=== PATIENT | female | born 1935 | race Caucasian/White ===

== ENCOUNTER → 2016-09-24 | Outpatient (CLI) | payer MEDICARE, OTHER ==
[~2016-09-24] VITALS: Ht 161.3 cm; Wt 59.1 kg
[~2016-09-24] MED LIST: ASPI-557 PO; CALC-52 PO; CHOL200029 PO; DENOSUMAB 60 MG/ML INJECTION SQ ONE; LISI-1 PO; LORA0.5T86 PO; MULT-57 PO; SIMV10TA6 PO; VITA400C19 PO; [UNRECOGNIZED DRUG - CODE] PO; [UNRECOGNIZED DRUG - CODE] PO
[2016-09-24 10:31] VITALS: BP 139/69; PULSE 69; RESP 18; TEMP 97.4; O2SAT 98
[2016-09-24 10:32] VITALS: Ht 161.3 cm; Wt 59.1 kg
== END ==
LOC: INF.THER 09:55
PROVIDERS: ATTEND Family Medicine
DX: M81.0 Age-related osteoporosis without current pathological fracture (principal)
CPT/HCPCS: 96372; J0897